=== PATIENT | male | born 1960 | race Caucasian/White ===

== ENCOUNTER 2024-03-28 12:14 | Emergency (ER) | payer OTHER ==
[2024-03-28] MEDS ORDERED: Lidocaine 1% w/Epinephrine 1:100K 20 ML VIAL ONE (12:20)
[2024-03-28] MEDS ORDERED: TETANUS, DIPHTHERIA TOX,ADULT (TDVAX) 0.5 ML VIAL IM ONE (12:23)
[2024-03-28] MEDS ORDERED: Bacitracin 1 PK ONE (12:42)
== END 2024-03-28 12:47 | disposition home or self-care (01) ==
LOC: NAV ERS 12:14
DX: S81.012A Laceration without foreign body, left knee, initial encounter (principal); R55 Syncope and collapse; W29.3XXA Contact with powered garden and outdoor hand tools and machinery, initial encounter
CPT/HCPCS: 12002; 90471; 90714

== ENCOUNTER 2024-05-14 20:04 | Emergency (ER) | payer BC | END 2024-05-14 21:45 | disposition home or self-care (01) | LOC: NAV ERS 20:04 | DX: S61.216A Laceration without foreign body of right little finger without damage to nail, initial encounter (principal); W29.3XXA Contact with powered garden and outdoor hand tools and machinery, initial encounter | CPT/HCPCS: 12002 ==